=== PATIENT | male | born 2005 | race Caucasian/White ===

== ENCOUNTER 2023-02-16 16:55 | Emergency (ER) | payer SELFPAY ==
[~2023-02-16] VITALS: Ht 167.6 cm; Wt 90.5 kg
[2023-02-16] MEDS ORDERED: dexAMETHasone 20MG/5ML VIAL IV ONE (17:00)
[2023-02-16] MEDS ORDERED: diphenhydrAMINE 50MG/ML VIAL IV ONE (18:35)
[2023-02-16] MEDS ORDERED: EPIP0.3I2 IM (18:36)
[2023-02-16 18:45] VITALS: BP 102/50
[2023-02-16 18:46] VITALS: O2SAT 93
[2023-02-16 19:04] VITALS: TEMP 98.2
== END 2023-02-16 19:05 | disposition home or self-care (01) ==
LOC: M ED 16:55
DX: T78.05XA Anaphylactic reaction due to tree nuts and seeds, initial encounter (principal); Z91.010 Allergy to peanuts
CPT/HCPCS: 96374; 96375; 99284; J1100; J1200

== ENCOUNTER 2023-02-16 21:14 | Observation (INO) | payer SELFPAY ==
[~2023-02-16] VITALS: Ht 167.6 cm; Wt 90.7 kg
[~2023-02-16 21:14] MED LIST: EPIP0.3I2 IM
[2023-02-16] MEDS ORDERED: diphenhydrAMINE 50MG/ML VIAL IV STA (21:47)
[2023-02-16] MEDS ORDERED: NS 1,000 ML IV SCH (21:50)
[2023-02-16] MEDS ORDERED: FAMOTIDINE 20MG/2ML VIAL IVP ONE (21:50)
[2023-02-16 22:11] LABS: BASO % 0.1 % (0.0-1.0); HEMATOCRIT 45.6 % (42.0-52.0); HEMOGLOBIN 15.8 g/dl (13.5-17.5); LYMPH # 0.5 10^3/uL (1.5-5.0); LYMPH % 2.8 % (24.0-44.0); MEAN CORPUSCULAR HEMOGLOBIN 30.5 pg (27.0-33.0); MEAN CORPUSCULAR HGB CONC 34.6 g/dl (32.0-36.5); MONO # 0.7 10^3/uL (0.0-0.8); MONO % 4.1 % (2.0-8.0); NEUTROPHILS # 15.4 10^3/uL (1.5-8.5); NEUTROPHILS % 92.5 % (36.0-66.0); PLATELET COUNT, AUTOMATED 252 10^3/uL (150-450); RED BLOOD COUNT 5.18 10^6/uL (4.30-6.10); WHITE BLOOD COUNT 16.6 10^3/uL (4.0-10.0)
[2023-02-16 22:36] LABS: BLOOD UREA NITROGEN 15 MG/DL (9-23); CALCIUM LEVEL 9.1 MG/DL (8.5-10.1); CARBON DIOXIDE LEVEL 27 MMOL/L (20-31); CHLORIDE LEVEL 104 MMOL/L (98-107); CREATININE FOR GFR 0.93 MG/DL (0.70-1.30); GLUCOSE, FASTING 127 MG/DL (60-100); POTASSIUM SERUM 4.2 MMOL/L (3.5-5.1); SODIUM LEVEL 139 MMOL/L (136-145)
[2023-02-16 22:52] LABS: CPK CREATINE PHOSPHOKINASE 9040 U/L (46-171); MB/CK RELATIVE INDEX 0.07 (< OR =4)
[2023-02-16] MEDS ORDERED: ISOVUE-370 76% 100ML VIAL As Ordered ONE (22:58)
[2023-02-16] MEDS ORDERED: NS 1,000 ML IV ONE (23:10)
[2023-02-17] MEDS ORDERED: ACETAMINOPHEN TAB 650MG DOSE (2X325MG) PO PRN (00:20)
[2023-02-17] MEDS ORDERED: HOME MED LIST COMPLETE! XX SCH (00:30)
[2023-02-17 00:59] LABS: RSV AMPLIFICATION NEGATIVE (NEGATIVE)
[2023-02-17] MEDS: NS 1,000 ML IV SCH ×4 (01:39→22:21)
[2023-02-17 01:47] VITALS: BP 122/68; TEMP 98.6; O2SAT 97
[2023-02-17 05:30] VITALS: BP 124/72; TEMP 98.2; O2SAT 98
[2023-02-17 05:55] LABS: APPEARANCE, URINE CLEAR (CLEAR); BACTERIA, URINE AUTO NEGATIVE (NEGATIVE); BILIRUBIN, URINE AUTO NEGATIVE (NEGATIVE); BLOOD, URINE BLOOD NEGATIVE (NEGATIVE); COLOR, URINE STRAW (YELLOW); GLUCOSE, URINE (UA) AUTO NEGATIVE (NEGATIVE); KETONE, URINE AUTO NEGATIVE (NEGATIVE); LEUKOCYTE ESTERASE, URINE AUTO NEGATIVE (NEGATIVE); MUCUS, URINE SMALL (NEGATIVE); NITRITE, URINE AUTO NEGATIVE (NEGATIVE); PROTEIN, URINE AUTO NEGATIVE (NEGATIVE); RBC, URINE AUTO 0 /HPF (0-3); SPECIFIC GRAVITY URINE AUTO 1.018 (1.002-1.035); SQUAMOUS EPITHELIAL CELL UR AU 0 /HPF (0-6); UROBILINOGEN, URINE AUTO 0.2 mg/dL (0.0-2.0); WBC, URINE AUTO 0 /HPF (0-3)
[2023-02-17 06:25] LABS: BLOOD UREA NITROGEN 12 MG/DL (9-23); CALCIUM LEVEL 8.8 MG/DL (8.5-10.1); CARBON DIOXIDE LEVEL 25 MMOL/L (20-31); CHLORIDE LEVEL 108 MMOL/L (98-107); GLUCOSE, FASTING 124 MG/DL (60-100); POTASSIUM SERUM 4.9 MMOL/L (3.5-5.1); SODIUM LEVEL 142 MMOL/L (136-145)
[2023-02-17 14:00] VITALS: BP 123/58; TEMP 98.4; O2SAT 16
[2023-02-17 20:48] VITALS: BP 124/72; TEMP 98.8; O2SAT 97
[2023-02-18 05:48] VITALS: BP 95/57; TEMP 98.4; O2SAT 99
[2023-02-18] MEDS: NS 1,000 ML IV SCH ×3 (05:50→19:40)
[2023-02-18 06:09] LABS: BASO % 0.3 % (0.0-1.0); EOS # 0.5 10^3/uL (0.0-0.5); EOS % 5.7 % (0.0-3.0); HEMATOCRIT 41.8 % (42.0-52.0); LYMPH # 3.2 10^3/uL (1.5-5.0); LYMPH % 36.6 % (24.0-44.0); MEAN CORPUSCULAR HEMOGLOBIN 30.4 pg (27.0-33.0); MEAN CORPUSCULAR HGB CONC 33.5 g/dl (32.0-36.5); MEAN CORPUSCULAR VOLUME 90.9 fl (80.0-96.0); MONO # 0.7 10^3/uL (0.0-0.8); MONO % 7.8 % (2.0-8.0); NEUTROPHILS # 4.3 10^3/uL (1.5-8.5); NEUTROPHILS % 49.1 % (36.0-66.0); PLATELET COUNT, AUTOMATED 223 10^3/uL (150-450); WHITE BLOOD COUNT 8.8 10^3/uL (4.0-10.0)
[2023-02-18 06:31] LABS: BLOOD UREA NITROGEN 8 MG/DL (9-23); CALCIUM LEVEL 8.8 MG/DL (8.5-10.1); CARBON DIOXIDE LEVEL 26 MMOL/L (20-31); CHLORIDE LEVEL 108 MMOL/L (98-107); CREATININE FOR GFR 0.84 MG/DL (0.70-1.30); GLUCOSE, FASTING 86 MG/DL (60-100); POTASSIUM SERUM 4.2 MMOL/L (3.5-5.1); SODIUM LEVEL 142 MMOL/L (136-145)
[2023-02-18 06:43] LABS: CPK CREATINE PHOSPHOKINASE 3413 U/L (46-171)
[2023-02-18] MEDS ORDERED: NS 1,000 ML IV ONE (09:40)
[2023-02-18 14:00] VITALS: BP 117/71; TEMP 98.1; O2SAT 99
[2023-02-18] MEDS ORDERED: MIDODRINE 5 MG TAB PO SCH (16:00)
[2023-02-18 21:10] VITALS: BP 119/75; TEMP 98.4; O2SAT 98
[2023-02-19] MEDS: NS 1,000 ML IV SCH ×2 (00:27→04:50)
[2023-02-19 05:42] VITALS: BP 107/69; TEMP 98.1; O2SAT 97
[2023-02-19] MEDS: NS 0.45% 1,000 ML IV SCH ×2 (10:18→11:13)
[2023-02-19] MEDS ORDERED: NS 0.45% 1,000 ML IV SCH (11:00)
[2023-02-19 12:36] LABS: BLOOD UREA NITROGEN 12 MG/DL (9-23); CARBON DIOXIDE LEVEL 31 MMOL/L (20-31); CHLORIDE LEVEL 104 MMOL/L (98-107); CREATININE FOR GFR 0.84 MG/DL (0.70-1.30); GLUCOSE, FASTING 79 MG/DL (60-100); POTASSIUM SERUM 3.7 MMOL/L (3.5-5.1); SODIUM LEVEL 140 MMOL/L (136-145)
[2023-02-19 13:40] LABS: CPK CREATINE PHOSPHOKINASE 1525 U/L (46-171)
[2023-02-19 14:00] VITALS: BP 123/71; TEMP 98.6; O2SAT 98
== END 2023-02-19 18:44 | disposition home or self-care (01) ==
LOC: M ED 21:14 → M ED INP 02-17 00:18 → M MSPAV 02-17 01:48
PROVIDERS: ADMIT Internal Medicine; ATTEND General Practice
DX: M62.82 Rhabdomyolysis (principal); T78.01XA Anaphylactic reaction due to peanuts, initial encounter; Z91.010 Allergy to peanuts; R74.8 Abnormal levels of other serum enzymes
CPT/HCPCS: 36415; 71046; 71275; 80048; 81001; 82550; 82553; 84484; 85025; 85379; 87631; 93005; 93041; 94760; 96361; 96374; 96375; 96376; 99285; J1200; Q9967; S0028